=== PATIENT | male | born 1990 | race Two or more races ===

== ENCOUNTER 2017-08-22 08:52 | Emergency (ER) | payer BC ==
[2017-08-22 08:57] VITALS: BP 156/98; PULSE 80; TEMP 98.1; BMI 44.4
--- NOTE | 2017-08-22 09:35 | PDOC ---
History of Present Illness - General Chief Complaint: Back Pain Stated Complaint: BACK PAIN Time Seen by Provider: 08/22/17 09:16 History Source: Patient Exam Limitations: No Limitations - History of Present Illness Initial Comments: 08/22/17 09:29 Patient is a 27-year-old male, no significant medical history currently on no medication presents with sudden onset of left back pain described as sharp, feels as if something is stabbing and in his back and going towards his bladder. Denies any nausea vomiting, no diarrhea or constipation, no fever. No chest pain or shortness of breath. Past Medical History: [Denies]. Allergies: No known allergies Medications: [None] Family History: Non-contributory Social History: Denies smoking, alcohol use, or IVDU Vital signs on arrival are [notable for pulse of 80, temp is 98. 1] Review of Systems GENERAL/CONSTITUTIONAL: [No fever or chills. No weakness. No weight change.] HEAD, EYES, EARS, NOSE AND THROAT: [No change in vision. No ear pain or discharge. No sore throat. ] CARDIOVASCULAR: [No chest pain or shortness of breath.] RESPIRATORY: [No cough, wheezing, or hemoptysis.] GASTROINTESTINAL: [No nausea, vomiting, diarrhea or constipation. No rectal bleeding.] GENITOURINARY: [No dysuria, frequency, or change in urination.] MUSCULOSKELETAL: [No joint or muscle swelling or pain. Left posterior back pain] SKIN AND BREASTS: [No rash or easy bruising.] NEUROLOGIC: [No headache, vertigo, loss of consciousness, or loss of sensation.] PSYCHIATRIC: [No depression or anxiety.] ENDOCRINE: [No increased thirst. No abnormal weight change.] HEMATOLOGIC/LYMPHATIC: [No anemia, easy bleeding, or history of blood clots.] ALLERGIC/IMMUNOLOGIC: [No hives or skin allergy. No latex allergy.] Physical Exam: GENERAL: [The patient is awake, alert, and fully oriented, in no acute distress. ] HEAD: [Normal with no signs of trauma.] EYES: [Pupils equal, round and reactive to light, extraocular movements intact, sclera anicteric, conjunctiva clear.] ENT: [Ears normal, nares patent, oropharynx clear without exudates. Moist mucous membranes. No uvula deviation] NECK: [Normal range of motion, supple without lymphadenopathy, JVD, or masses.] LUNGS: [Breath sounds equal, clear to auscultation bilaterally. No wheezes, and no crackles.] HEART: [Regular rate and rhythm, normal S1 and S2 without murmur, rub or gallop. ] ABDOMEN: [Soft, nontender, normoactive bowel sounds. No guarding, no rebound. No masses. No bruising or abrasions] MUSCULOSKELETAL: [Normal range of motion, no edema. No clubbing or cyanosis. No cords, erythema, or tenderness. CVA Tenderness with fist palpation bilateral sides, worse on the left. .] NEUROLOGICAL: [Cranial nerves II through XII grossly intact. Normal speech, normal gait.] PSYCH: [Normal mood, normal affect.] SKIN: [Warm, Dry, normal turgor, no rashes or lesions noted.] 08/22/17 09:30 Past History - Past Medical History Allergies/Adverse Reactions: Allergies Allergy/AdvReac Type Severity Reaction Status Date / Time No Known Allergies Allergy Verified 08/22/17 08:53 Home Medications: Ambulatory Orders Naproxen [Naprosyn] 500 mg PO BID #30 tablet 08/22/17 COPD: No Other medical history: DENIES. - Suicide/Smoking/Psychosocial Hx Smoking History: Never smoked *Physical Exam - Vital Signs Last Vital Signs Temp Pulse Resp BP Pulse Ox 98.1 F 80 19 156/98 98 08/22/17 08:54 08/22/17 08:54 08/22/17 08:54 08/22/17 08:54 08/22/17 08:54 Medical Decision Making - Medical Decision Making 08/22/17 09:35 A/P: Patient with CVA tenderness, we'll send urinalysis and urine culture rule out kidney stone 08/22/17 11:24 +1 blood in the urine Laboratory Results - last 24 hr 08/22/17 09:30 Urine Color Colorless Urine Appearance Clear Urine pH 7.0 Ur Specific [place] 1.003 Urine Protein Negative Urine Glucose (UA) Negative Urine Ketones Negative Urine Blood 1+ H Urine Nitrite Negative Urine Bilirubin Negative Urine Urobilinogen Negative Ur Leukocyte Esterase Negative Urine WBC (Auto) <1 Urine RBC (Auto) <1 Patient still with significant CVA tenderness will perform spiral CT rule out kidney stone 08/22/17 14:53 CT were no evidence of kidney stone, chest x-ray performed with no acute cardiopulmonary disease. Toradol given 60 mg, patient reports relief after medication. Patient musculoskeletal pain. Encourage patient no lifting greater than 10 pounds, Naprosyn for pain. I discussed the physical exam findings, ancillary test results and final diagnoses with the patient. I answered all of the patient's questions. The patient was satisfied with the care received and felt comfortable with the discharge plan and treatment plan. The patient will call to arrange follow-up and will return to the Emergency Department with any new, persistent or worsening symptoms. *DC/Admit/Observation/Transfer Diagnosis at time of Disposition: Back pain Qualifiers: Back pain location: thoracic back pain Chronicity: acute Back pain laterality: left Qualified Code(s): M54.6 - Pain in thoracic spine - Discharge Dispostion Disposition: HOME Condition at time of disposition: Stable - Prescriptions Prescriptions: Naproxen [Naprosyn] 500 mg PO BID #30 tablet - Referrals - Patient Instructions Printed Discharge Instructions: Back Pain (Alternative Therapy) Additional Instructions: 1. Please return to the emergency department with any numbness, tingling, weakness, numbness or tingling to groin or legs, or loss of bowel or bladder function. 2. Use pain medication as ordered. 3. Please is to followup in the office of Dr. ritter for evaluation within a week if no improvement. 4. Ice or heat 5. Refrain from lifting anything above 10 pounds, until pain resolved. - Post Discharge Activity Forms/Work/School Notes: Back to Work
[2017-08-22 09:49] LABS: URINE APPEARANCE CLEAR; URINE BILIRUBIN NEGATIVE (NEGATIVE); URINE BLOOD 1+ (NEGATIVE); URINE COLOR COLORLESS; URINE GLUCOSE (UA) NEGATIVE (NEGATIVE); URINE KETONE NEGATIVE (NEGATIVE); URINE LEUK ESTERASE NEGATIVE (NEGATIVE); URINE NITRITE NEGATIVE (NEGATIVE); URINE PROTEIN NEGATIVE (NEGATIVE); URINE UROBILINOGEN NEGATIVE mg/dL (0.2-1.0)
[2017-08-22] MEDS ORDERED: KETOROLAC TROMETHAMINE 60 MG/2 ML VIAL IM ONE (11:59)
[2017-08-22] MEDS ORDERED: KETOROLAC TROMETHAMINE 60 MG/2 ML VIAL ONE (12:05)
== END 2017-08-22 13:08 | disposition home or self-care (01) ==
LOC: JERFT 08:52
PROC: 3E0233Z Introduction of Anti-inflammatory into Muscle, Percutaneous Approach (ICD-10-PCS; principal; 2017-08-22)
DX: M54.6 Pain in thoracic spine (principal)
CPT/HCPCS: 71046-TC-FY; 74176; 81003; 81015; 87086; 99281-25

== ENCOUNTER 2018-09-17 01:34 | Observation (INO) | payer BC ==
[2018-09-17 03:10] VITALS: BMI 49.2
--- NOTE | 2018-09-17 03:14 | PDOC ---
Attending Attestation - HPI HPI: 09/17/18 03:27 The patient is a 28 year old male, with a significant past medical history of anxiety, who presents to the emergency department with, 2 days of chest pain with shortness of breath. Patient notes his pain worsened today causing him to not be able to sleep, prompting his arrival. He denies any recent fevers, chills, headache or dizziness. He denies any recent nausea, vomit, diarrhea or constipation. He denies any recent dysuria, frequency, urgency or hematuria. Allergies: NKDA Past surgical history: None reported. Social History: Hookah. - Physicial Exam PE: 09/17/18 03:27 Refer to resident exam. <Vera Ballard - Last Filed: 09/17/18 03:26> - Resident Resident Name: Karyn Brady - ED Attending Attestation I have performed the following: I have examined & evaluated the patient, The case was reviewed & discussed with the resident, I agree w/resident's findings & plan - Medical Decision Making 09/17/18 04:24 28-year-old male with intermittent chest pain for several days worse when attempting to lay flat EKG shows T-wave abnormalities in inferior lateral leads with no old for comparison We will hold for serial enzymes/observation <Phoebe Brower - Last Filed: 09/17/18 04:25> Attestations - Attestations 09/17/18 03:28 Documentation prepared by Vera Ballard, acting as district medical examiner for Phoebe Brower DO. <Vera Ballard - Last Filed: 09/17/18 03:26>
--- NOTE | 2018-09-17 03:30 | PDOC ---
History of Present Illness - General Chief Complaint: Shortness of Breath Stated Complaint: SOB,CHEST DISCOMFORT Time Seen by Provider: 09/17/18 03:14 - History of Present Illness Initial Comments: 09/17/18 03:29 The patient is a 28 year old male with a PMH of morbid obesity and anxiety presents to our ED c/o 2-3 day h/o chest pain. Pain is L sided, intermittent, and sometimes radiates down his L arm. Endorses associated shortness of breath that is worse with laying flat. No previous cardiac work-up. Family history significant for maternal and paternal grandmothers with hear problems. NKDA Surgical: none reported Social: daily hookah, denies other toxic habits PMD: None, has a pending appointment with Dr. Ron Bradnon M.D. As per EMR patient last evaluated in our ED in [address] Spiral [address] negative and patient discharged home with supportive care and orthopedic follow- up. Past History - Past Medical History Allergies/Adverse Reactions: Allergies Allergy/AdvReac Type Severity Reaction Status Date / Time No Known Allergies Allergy Verified 09/17/18 03:10 Home Medications: Ambulatory Orders NK [No Known Home Medication] 09/17/18 COPD: No - Suicide/Smoking/Psychosocial Hx Smoking History: Current every day smoker Have you smoked in the past 12 months: Yes Number of Cigarettes Smoked Daily: 10 Information on smoking cessation initiated: No Hx Alcohol Use: Yes (Social) Drug/Substance Use Hx: Yes (Marijuana) Review of Systems - Review of Systems Constitutional: No: Chills, Fever HEENTM: No: Recent change in vision Respiratory: Yes: Shortness of Breath. No: Cough, Wheezing Cardiac (ROS): Yes: Chest Pain. No: Lightheadedness, Palpitations, Syncope ABD/GI: No: Constipated, Diarrhea, Nausea, Vomiting Psychiatric: Yes: Anxiety *Physical Exam - Vital Signs Last Vital Signs Temp Pulse Resp BP Pulse Ox 98.5 F 102 H 17 161/82 100 09/17/18 01:34 09/17/18 01:34 09/17/18 01:34 09/17/18 01:34 09/17/18 01:34 - Physical Exam General Appearance: Yes: Obese HEENT: positive: Normal Voice, Hearing Grossly Normal Neck: positive: Trachea midline, Supple Respiratory/Chest: positive: Lungs Clear, Normal Breath Sounds Cardiovascular: positive: S1, S2. negative: Edema, JVD Gastrointestinal/Abdominal: positive: Normal Bowel Sounds, Soft Extremity: positive: Normal Capillary Refill, Normal Inspection Integumentary: positive: Normal Color, Warm Neurologic: positive: Fully Oriented, Alert Moderate Sedation - Procedure Monitoring Vital Signs: Procedure Monitoring Vital Signs Temperature 98.5 F 09/17/18 01:34 Pulse Rate 102 H 09/17/18 01:34 Respiratory Rate 17 09/17/18 01:34 Blood Pressure 161/82 09/17/18 01:34 O2 Sat by Pulse Oximetry (%) 100 09/17/18 01:34 ED Treatment Course - LABORATORY CBC & Chemistry Diagram: 09/17/18 03:50 09/17/18 04:38 Medical Decision Making - Medical Decision Making 09/17/18 03:41 28 year old with chest pain and shorntess of breath. VS unremarkable. Frontal diagnosis: r/o ACS, esophageal spasm, GERD, costochondritis, MSK. Also consider CHF, though less likely given patient's age and clinical presentation. Basic labs, Troponin, BNP. ASA. Cardiac monitoring. Reassess. 09/17/18 03:43 EKG shows TWI in Leads II, III, aVGF as well as V4-6, no ISABEL/STD; no previous EKG in EMR Troponin (-) x1 Heart Score 4 Case d/w Dr. Ann, will admit Tele OBS for serial Troponins and further cardiac evaluation. Patient and patient's partner @ bedside counseled on plan of care, amenable to admission. *DC/Admit/Observation/Transfer Diagnosis at time of Disposition: Chest pain - Discharge Dispostion Condition at time of disposition: Fair Decision to Admit order: Yes - Referrals - Patient Instructions - Post Discharge Activity
[2018-09-17] MEDS ORDERED: ACETAMINOPHEN 1000 MG/100 ML VIAL (NON FORMULARY) IVPB ONE (03:42)
[2018-09-17] MEDS ORDERED: ACETAMINOPHEN INJECTION 100 ML IVPB ONE (03:52)
[2018-09-17 03:58] LABS: BASO % 0.9 % (0-2.0); EOS % 1.6 % (0-4.5); HEMATOCRIT 43.8 % (35.4-49); HEMOGLOBIN 15.7 GM/dL (11.7-16.9); LYMPH % 36.1 % (8-40); MCH 31.2 pg (25.7-33.7); MCHC 35.7 g/dl (32.0-35.9); MEAN CELL VOLUME 87.4 fl (80-96); MEAN PLT VOLUME 8.8 fl (7.5-11.1); NEUT % 54.4 % (42.8-82.8); PLATELET COUNT 250 K/MM3 (134-434); RBC 5.02 M/mm3 (4.00-5.60); RDW 13.2 % (11.9-15.9); WHITE BLOOD COUNT 10.4 K/mm3 (4.0-10.0)
[2018-09-17] MEDS ORDERED: ASPIRIN 325 MG TABLET PO ONE (04:04)
[2018-09-17] MEDS ORDERED: ASPIRIN 325 MG TABLET ONE (04:43)
[2018-09-17 05:14] LABS: ALBUMIN 4.2 g/dl (3.4-5.0); ALK PHOS 91 U/L (45-117); ANION GAP 8 MMOL/L (8-16); BILIRUBIN,TOTAL 0.4 mg/dL (0.2-1); BLOOD UREA NITROGEN 17 mg/dL (7-18); CALCIUM 9.3 mg/dL (8.5-10.1); CHLORIDE 101 mmol/L (98-107); CO2 25 mmol/L (21-32); GLUCOSE,RANDOM 123 mg/dL (74-106); POTASSIUM 3.9 mmol/L (3.5-5.1); SGOT/AST 31 U/L (15-37); SGPT/ALT 49 U/L (13-61); SODIUM 134 mmol/L (136-145); TOT PROT 7.6 g/dl (6.4-8.2)
[2018-09-17] MEDS ORDERED: ACETAMINOPHEN 325 MG TABLET (FP) PO PRN (09:02)
[2018-09-17] MEDS ORDERED: MORPHINE SULFATE 2 MG/ML VIAL IVPUSH PRN (09:02)
--- NOTE | 2018-09-17 09:18 | HP ---
CHIEF COMPLAINT: chest pain PCP: none HISTORY OF PRESENT ILLNESS: 28 yo M with no significant pmhx presents with two day history of chest pain. He describes 7/10 intermittent left sided non radiating chest pressure. Pain last for approx 30 min and occurs at rest. No associated nausea, vomiting, or diaphoresis. No cardiac history. He is obese but states he is active and works out several times a week on [employer] and lifts weights. No pain during these strenuous activities. At this time denies CP ,MILLER,SOB, abdominal pain, nausea, vomiting, fever or chills. ER course was notable for: (1)trops (-) x1 (2)EKG shows NSR, normal intervals, no st changes, non specific T wave inversions in lateral leads. (3) Recent Travel: denies PAST MEDICAL HISTORY: none PAST SURGICAL HISTORY: None Social History: Smoking:occasional hookah Alcohol:social Drugs: denies Family History: Grandmother ( DVT) Allergies No Known Allergies Allergy (Verified 09/17/18 03:10) HOME MEDICATIONS: Home Medications Medication Instructions Recorded NK [No Known Home Medication] 09/17/18 REVIEW OF SYSTEMS CONSTITUTIONAL: Absent: fever, chills, diaphoresis, generalized weakness, malaise, loss of appetite, weight change HEENT: Absent: rhinorrhea, nasal congestion, throat pain, throat swelling, difficulty swallowing, mouth swelling, ear pain, eye pain, visual changes CARDIOVASCULAR: chest pain Absent:, syncope, palpitations, irregular heart rate, lightheadedness, peripheral edema RESPIRATORY: Absent: cough, shortness of breath, dyspnea with exertion, orthopnea, wheezing, stridor, hemoptysis GASTROINTESTINAL: Absent: abdominal pain, abdominal distension, nausea, vomiting, diarrhea, constipation, melena, hematochezia GENITOURINARY: Absent: dysuria, frequency, urgency, hesitancy, hematuria, flank pain, genital pain MUSCULOSKELETAL: Absent: myalgia, arthralgia, joint swelling, back pain, neck pain SKIN: Absent: rash, itching, pallor HEMATOLOGIC/IMMUNOLOGIC: Absent: easy bleeding, easy bruising, lymphadenopathy, frequent infections ENDOCRINE: Absent: unexplained weight gain, unexplained weight loss, heat intolerance, cold intolerance NEUROLOGIC: Absent: headache, focal weakness or paresthesias, dizziness, unsteady gait, seizure, mental status changes, bladder or bowel incontinence PSYCHIATRIC: Absent: anxiety, depression, suicidal or homicidal ideation, hallucinations. PHYSICAL EXAMINATION Vital Signs - 24 hr 09/17/18 09/17/18 01:34 05:35 Temperature 98.5 F Pulse Rate 102 H Respiratory 17 Rate Blood Pressure 161/82 O2 Sat by Pulse 100 98 Oximetry (%) GENERAL: AAOx3, NAD HEAD: NCAT EYES: PERRLA,EOMI, sclera anicteric, conjunctiva clear. No lid lag. EARS, NOSE, THROAT: Moist mucous membranes. NECK: Normal range of motion, supple without lymphadenopathy, JVD, or masses. LUNGS: CTAB. No wheezes, and no crackles. No accessory muscle use. HEART: Tachycardic, normal S1 and S2 without murmur, rub or gallop. ABDOMEN: Soft, obese, NTND, NABS, no guarding, no rebound, no masses. No hepatomegaly or splenomegaly. MUSCULOSKELETAL: Normal range of motion at all joints. No bony deformities or tenderness. No CVA tenderness. LOWER EXTREMITIES: 2+ pulses, warm, well-perfused. No calf tenderness. No peripheral edema. NEUROLOGICAL: Cranial nerves II-XII intact. Normal speech. Normal gait. PSYCHIATRIC: Cooperative. Good eye contact. Appropriate mood and affect. SKIN: Warm, dry, normal turgor, no rashes or lesions noted, normal capillary refill. Laboratory Results - last 24 hr 09/17/18 09/17/18 09/17/18 03:50 03:50 04:38 WBC 10.4 H RBC 5.02 Hgb 15.7 Hct 43.8 MCV 87.4 MCH 31.2 MCHC 35.7 RDW 13.2 Plt Count 250 MPV 8.8 Absolute Neuts (auto) 5.7 Neutrophils % 54.4 Lymphocytes % 36.1 Monocytes % 7.0 Eosinophils % 1.6 Basophils % 0.9 Nucleated RBC % 0 Sodium Cancelled 134 L Potassium Cancelled 3.9 Chloride Cancelled 101 Carbon Dioxide Cancelled 25 Anion Gap Cancelled 8 BUN Cancelled 17 Creatinine Cancelled 1.0 Creat Clearance w eGFR Cancelled 89.63 Random Glucose Cancelled 123 H Calcium Cancelled 9.3 Total Bilirubin Cancelled 0.4 AST Cancelled 31 ALT Cancelled 49 Alkaline Phosphatase Cancelled 91 Creatine Kinase Cancelled 416 H Creatine Kinase Index 0.4 CK-MB (CK-2) 1.7 Troponin I Cancelled 0.04 B-Natriuretic Peptide Cancelled Total Protein Cancelled 7.6 Albumin Cancelled 4.2 ASSESSMENT/PLAN: 28 yo M with no significant pmhx presents with two day history of chest pain. He describes 7/10 intermittent left sided non radiating chest pressure placed on observation to r/o ACS. Problem List - Problem (1) Chest pain Assessment/Plan: Low pre-test probability of ACS. * most likely related to lack of sleep and stress/anxiety related * will trend trops * Cardiology consult * repeat EKG * LE doppler r/o DVT - low prob. of PE * pain meds with 2mg morphine and tylenol depending of level of pain. (2) Obesity Assessment/Plan: Counseled on imprortance of losing weight. * He says that he works out several days a week but needs to work on his intake. * counseled on possible health risk of being overweight. (3) DVT prophylaxis Assessment/Plan: heparin SQ 5000 u Q8h Visit type - Emergency Visit Emergency Visit: Yes ED Registration Date: 09/17/18 Care time: The patient presented to the Emergency Department on the above date and was hospitalized for further evaluation of their emergent condition. - New Patient This patient is new to me today: Yes Date on this admission: 09/17/18 - Critical Care Critical Care patient: No
[2018-09-17 09:21] VITALS: BP 138/78; PULSE 77; TEMP 98.1
--- NOTE | 2018-09-17 11:35 | PN ---
Teaching Attending Note Name of Resident: David Bean ATTENDING PHYSICIAN STATEMENT I saw and evaluated the patient. I reviewed the resident's note and discussed the case with the resident. I agree with the resident's findings and plan as documented. SUBJECTIVE: This is a 28 year old man with no significant medical history who comes to the ED complaining of chest pain. He has been having symptoms intermittently for the last 2 days. The pain is located in the left side of his chest and does not radiate. He says he feels SOB but denies dizziness, nausea, palpitations. Each episode lasts 30-60 minutes and resolves spontaneously. He says the symptoms occur after he eats "bad foods" but not after he eats "healthier foods". He does not get chest pain when he exercises. OBJECTIVE: Vital Signs Period Temp Pulse Resp BP Sys/Gan Pulse Ox Last 24 Hr 98.1 F-98.5 F 77-102 16-17 138-161/78-82 98-100 HEART: S1S2, RRR LUNGS: Clear ABDOMEN: Obese, soft, non-tender, non-distended, normal BS EXTREMITIES: No edema Laboratory Tests 09/17/18 09/17/18 09/17/18 03:50 03:50 04:38 WBC 10.4 H RBC 5.02 Hgb 15.7 Hct 43.8 MCV 87.4 MCH 31.2 MCHC 35.7 RDW 13.2 Plt Count 250 MPV 8.8 Absolute Neuts (auto) 5.7 Neutrophils % 54.4 Lymphocytes % 36.1 Monocytes % 7.0 Eosinophils % 1.6 Basophils % 0.9 Nucleated RBC % 0 Sodium Cancelled 134 L Potassium Cancelled 3.9 Chloride Cancelled 101 Carbon Dioxide Cancelled 25 Anion Gap Cancelled 8 BUN Cancelled 17 Creatinine Cancelled 1.0 Creat Clearance w eGFR Cancelled 89.63 Random Glucose Cancelled 123 H Calcium Cancelled 9.3 Total Bilirubin Cancelled 0.4 AST Cancelled 31 ALT Cancelled 49 Alkaline Phosphatase Cancelled 91 Creatine Kinase Cancelled 416 H Creatine Kinase Index 0.4 CK-MB (CK-2) 1.7 Troponin I Cancelled 0.04 B-Natriuretic Peptide Cancelled Total Protein Cancelled 7.6 Albumin Cancelled 4.2 Home Medications Medication Instructions Recorded NK [No Known Home Medication] 09/17/18 ASSESSMENT AND PLAN: This is a 28 year old man with no significant medical history who presented to the ED with intermittent chest pain for the last 2 days. 1. Chest pain, atypical - Observe on telemetry - Serial troponins - Echocardiogram - RUQ US as patient relates his symptoms 2. Morbid obesity with BMI 49.2
--- NOTE | 2018-09-17 12:07 | EKG ---
Test Reason : Blood Pressure : / mmHG Vent. Rate : 084 BPM Atrial Rate : 084 BPM P-R Int : 142 ms QRS Dur : 094 ms QT Int : 366 ms P-R-T Axes : 039 074 -44 degrees QTc Int : 432 ms NORMAL SINUS RHYTHM INCOMPLETE RIGHT BUNDLE BRANCH BLOCK T WAVE ABNORMALITY, CONSIDER INFEROLATERAL ISCHEMIA ABNORMAL ECG NO PREVIOUS ECGS AVAILABLE Confirmed by LAWRENCE GONZALEZ MD ([id number]) on 09/17/2018 12:07:19 PM Referred By: Confirmed By:LAWRENCE GONZALEZ MD
[2018-09-17] MEDS ORDERED: HEPARIN NA (PORCINE) 5,000 UNITS/ML 1ML VIAL SQ SCH (14:00)
--- NOTE | 2018-09-17 14:45 | ECHO ---
Name: SHAYY MYERS Exam:Adult Echocardiogram Study Date: 09/17/2018 09:56 AM Age: 28 yrs Reason For Study: Chest pain Height: 66 in Weight: 308 lb BSA: 2.4 m2 MMode/2D Measurements & Calculations IVSd: 0.86 cm Ao root diam: 3.0 cm LVIDd: 5.1 cm LA dimension: 3.3 cm LVIDs: 3.3 cm LVPWd: 0.96 cm EDV(Teich): 126.0 ml LVOT diam: 2.1 cm ESV(Teich): 45.7 ml TAPSE: 2.5 cm Doppler Measurements & Calculations MV E max juan: 67.9 cm/sec Med Peak E' Juan: 8.7 cm/sec MV A max juan: 61.6 cm/sec Med E/e': 7.8 MV E/A: 1.1 Lat Peak E' Juan: 15.4 cm/sec Lat E/e': 4.4 Procedure A two-dimensional transthoracic echocardiogram with color flow and Doppler was performed. The study w as technically difficult with many images being suboptimal in quality. Left Ventricle The left ventricular size, thickness and function are normal. The left ventricle is not well visualiz ed. The left ventricular ejection fraction is normal. Regional wall motion abnormalities cannot be excluded d ue to limited visualization. Right Ventricle The right ventricle is not well visualized. Atria Normal left and right atrial size and function. Mitral Valve There is mild mitral valve thickening. The mitral valve is not well visualized. There is no mitral va lve stenosis. There is trace to mild mitral regurgitation. Tricuspid Valve The tricuspid valve is not well visualized. There is no tricuspid stenosis. There was insufficient TR detected to calculate RV systolic pressure. Aortic Valve The aortic valve is not well visualized. Pulmonic Valve The pulmonic valve is not well visualized. Great Vessels The aortic root is normal size. Pericardium/Pleura There is no pericardial effusion. Interpretation Summary The left ventricular size, thickness and function are normal The left ventricular ejection fraction is normal. Regional wall motion abnormalities cannot be excluded due to limited visualization. The left ventricle is not well visualized. The tricuspid valve is not well visualized. There is trace to mild mitral regurgitation. There was insufficient TR detected to calculate RV systolic pressure. The study was technically difficult with many images being suboptimal in quality. MD Scott Borges 09/17/2018 02:44 PM
--- NOTE | 2018-09-17 16:09 | CON.CARD ---
Consult Consult Specialty:: Cardiology Referred by:: Hospitalist Reason for Consultation:: Chest pain, abnl ekg - History of Present Illness Chief Complaint: chest pain History of Present Illness: 28 year old man with h/o obesity admitted for c/o chest pain. Pt seen and examined today in nad. States that his pain started 2-3 days ago and has been on and off since. states it occurs at rest, usually after eating, not associated with exertion. states that he exercises a few times per week walking on the treadmill and lifting weights without ever having any chest pain or sob with exertion. denies pnd, orthopnea, or LE edema - History Source History Provided By: Patient Limitations to Obtaining History: No Limitations - Alcohol/Substance Use Hx Alcohol Use: Yes (Social) - Smoking History Smoking history: Current every day smoker Have you smoked in the past 12 months: Yes Aproximately how many cigarettes per day: 10 - Social History ADL: Independent History of Recent Travel: No Home Medications - Allergies Allergies/Adverse Reactions: Allergies Allergy/AdvReac Type Severity Reaction Status Date / Time No Known Allergies Allergy Verified 09/17/18 03:10 - Home Medications Home Medications: Ambulatory Orders NK [No Known Home Medication] 09/17/18 Family Disease History - Family Disease History Family History: Denies Review of Systems - Review of Systems Constitutional: denies: No Symptoms, Chills, Diaphoresis, Fever, Lethargy, Loss of Appetite, Malaise, Night Sweats, Unintentional Wgt. Loss, Weakness, Other Eyes: denies: No Symptoms, Blind Spots, Blurred Vision, Double Vision, Eye Pain , Floaters, Photophobia, Recent Change in Vision, Other HENT: denies: No Symptoms, Difficult Swallowing, Ear Discharge, Ear Pain, Epistaxis, Gingival Bleeding, Hearing Loss, Mouth Swelling, Nasal Congestion, Ocular Prosthesis, Throat Pain, Toothache, Ringing in Ears, Other Neck: denies: No Symptoms, Decreased ROM, Lumps, Pain on Movement, Stiffness, Swollen Glands, Tenderness, Other Cardiovascular: reports: Chest Pain. denies: No Symptoms, Edema, Palpitations, Shortness of Breath, Other Respiratory: denies: No Symptoms, Cough, Exercise Intolerance, Hemoptysis, Orthopnea, PND, Snoring, SOB, SOB on Exertion, Wheezing, Other Gastrointestinal: denies: No Symptoms, Abdominal Pain, Bloating, Constipation, Diarrhea, Dysphagia, Indigestion, Melena, Nausea, Rectal Bleeding, Vomiting, Vomiting Blood, Other Genitourinary: denies: No Symptoms, Burning, Discharge, Dysuria, Flank Pain, Frequency, Hematuria, Incontinence, Lesions, Menses, Pain, Testicular Mass, Testicular Pain, Testicular Swelling, Urgency, Vaginal Bleeding, Other Breasts: denies: No Symptoms Reported, See HPI, Breast Implants, Discharge from Nipple, Lumps, Pain, Skin Changes, Other Musculoskeletal: denies: No Symptoms, Back Pain, Crepitus, Decreased ROM, Extremity Pain, Joint Pain, Joint Swelling, Muscle Pain, Muscle Cramps, Muscle Weakness, Other Integumentary: denies: No Symptoms, Blister, Bruising, Change in Color, Eczema, Erythema, Incision, Lesions, Lump, Pallor, Pruritis, Rash, Wound, Other Neurological: denies: No Symptoms, Change in LOC, Change in Speech, Confusion, Dizziness, Headache, Incoordination, Numbness, Parasthesia, Pre-Existing Deficit , Seizure, Syncope, Tremors, Unsteady Gait, Weakness, Other Endocrine: denies: No Symptoms, Excessive Sweating, Flushing, Increased Hunger, Increased Thirst, Intolerance to Cold, Intolerance to Heat, Unexplained Weight Gain, Unexplained Weight Loss, Other Hematology/Lymphatic: denies: No Symptoms, Easily Bruised, Excessive Bleeding, Swollen Glands, Other Psychiatric: denies: No Symptoms, Altered Sleep Pattern, Anxiety, Depression, Hallucinations, Panic, Paranoia, Suicidal, Other Vital Signs: Vital Signs Temperature 98.1 F 09/17/18 09:20 Pulse Rate 77 09/17/18 09:20 Respiratory Rate 16 09/17/18 09:20 Blood Pressure 138/78 09/17/18 09:20 O2 Sat by Pulse Oximetry (%) 98 09/17/18 09:20 Constitutional: Yes: No Distress, Calm Eyes: Yes: Conjunctiva Clear, EOM Intact, PERRL HENT: Yes: Atraumatic, Normocephalic Neck: Yes: Supple, Trachea Midline Respiratory: Yes: Regular, CTA Bilaterally. No: Rales, Rhonchi, Wheezes Gastrointestinal: Yes: Normal Bowel Sounds, Soft. No: Distention, Tenderness Renal/: Yes: WNL Cardiovascular: Yes: Regular Rate and Rhythm. No: Bradycardia, Tachycardia, Pulse Irregular, Gallop, Rub, Varicosities JVD: No Carotid Bruit: No PMI: Non-Displaced Heart Sounds: Yes: S1, S2. No: Split S2, S3, S4, Clicks, Gallop, Rub, Bruit Murmur: No: Systolic Murmur, Diastolic Murmur Musculoskeletal: Yes: WNL Extremities: Yes: WNL Edema: No Peripheral Pulses WNL: Yes Peripheral Pulses: 2+ Left Doralis Pedis, 2+ Right Dorsalis Pedis Neurological: Yes: Alert, Oriented Psychiatric: Yes: Alert, Oriented - Other Data Labs, Other Data: CBC, BMP 09/17/18 03:50 09/17/18 04:38 Troponin, BNP 09/17/18 09/17/18 09/17/18 03:50 04:38 09:50 Troponin I Cancelled 0.04 0.03 B-Natriuretic Peptide Cancelled Troponin, BNP 09/17/18 09/17/18 09/17/18 03:50 04:38 09:50 Troponin I Cancelled 0.04 0.03 B-Natriuretic Peptide Cancelled nsr 84bpm, T wave abnl inversions V4, v5, v6, II, III, aVF Imaging - Results Chest X-ray: Report Reviewed, Image Reviewed EKG: Report Reviewed, Image Reviewed Other: Report Reviewed, Image Reviewed Assessment/Plan 28 year old man with h/o obesity admitted for c/o chest pain. Pt seen and examined today in nad. States that his pain started 2-3 days ago and has been on and off since. states it occurs at rest, usually after eating, not associated with exertion. states that he exercises a few times per week walking on the treadmill and lifting weights without ever having any chest pain or sob with exertion. denies pnd, orthopnea, or LE edema Chest pain-atypical, unlikely ACS -troponin wnl -echo was TDS but showed normal LVEF -nsr 84bpm, T wave abnl inversions V4, v5, v6, II, III, aVF -no further chest pain since admission -pt is acceptable for discharge from a cardiac standpoint, would plan for outpatient fup.
--- NOTE | 2018-09-17 16:31 | DS ---
Physical Exam: SUBJECTIVE: Patient seen and examined at bedside. No longer with chest pain. Ready for d/c. OBJECTIVE: Vital Signs Period Temp Pulse Resp BP Sys/Gan Pulse Ox Last 24 Hr 98.1 F-98.5 F 77-102 16-17 138-161/78-82 98-100 PHYSICAL EXAM GENERAL: AAOx3, NAD HEAD: NCAT EYES: PERRLA,EOMI, sclera anicteric, conjunctiva clear. No lid lag. EARS, NOSE, THROAT: Moist mucous membranes. NECK: Normal range of motion, supple without lymphadenopathy, JVD, or masses. LUNGS: CTAB. No wheezes, and no crackles. No accessory muscle use. HEART: Tachycardic, normal S1 and S2 without murmur, rub or gallop. ABDOMEN: Soft, obese, NTND, NABS, no guarding, no rebound, no masses. No hepatomegaly or splenomegaly. MUSCULOSKELETAL: Normal range of motion at all joints. No bony deformities or tenderness. No CVA tenderness. LOWER EXTREMITIES: 2+ pulses, warm, well-perfused. No calf tenderness. No peripheral edema. NEUROLOGICAL: Cranial nerves II-XII intact. Normal speech. Normal gait. PSYCHIATRIC: Cooperative. Good eye contact. Appropriate mood and affect. SKIN: Warm, dry, normal turgor, no rashes or lesions noted, normal capillary refill. LABS Laboratory Results - last 24 hr 09/17/18 09/17/18 03:50 04:38 WBC 10.4 H RBC 5.02 Hgb 15.7 Hct 43.8 MCV 87.4 MCH 31.2 MCHC 35.7 RDW 13.2 Plt Count 250 MPV 8.8 Absolute Neuts (auto) 5.7 Neutrophils % 54.4 Lymphocytes % 36.1 Monocytes % 7.0 Eosinophils % 1.6 Basophils % 0.9 Nucleated RBC % 0 Sodium 134 L Potassium 3.9 Chloride 101 Carbon Dioxide 25 Anion Gap 8 BUN 17 Creatinine 1.0 Creat Clearance w eGFR 89.63 Random Glucose 123 H Calcium 9.3 Total Bilirubin 0.4 AST 31 ALT 49 Alkaline Phosphatase 91 Creatine Kinase 416 H Creatine Kinase Index 0.4 CK-MB (CK-2) 1.7 Troponin I 0.04 B-Natriuretic Peptide Total Protein 7.6 Albumin 4.2 Troponin trend 09/17/18 09/17/18 09/17/18 04:38 09:50 15:00 Troponin I 0.04 0.03 0.03 Abdomen U/S: hepatomegaly with diffuse fatty infiltration of liver. b/l duplex: (-) for DVT ECHO: suboptimal in quality. LV EF normal. regional wall motion abnormalities cannot be excluded due to limited visualization. nromaml LA, RA size and function. insufficient TR to calculate RSVP. EKG: nsr 84bpm, T wave abnl inversions V4, v5, v6, II, III, aVF HOSPITAL COURSE: Date of Admission:09/17/18 Date of Discharge: 09/17/18 Admit diagnosis: r/o ACS 28 yo M with no significant pmhx presents with two day history of chest pain. He describes 7/10 intermittent left sided non radiating chest pressure. Pain last for approx 30 min and occurs at rest. No associated nausea, vomiting, or diaphoresis. No cardiac history. He is obese but states he is active and works [place] a [place] [employer] [place] [employer] and lifts weights. No pain during these strenuous activities. At this time denies CP ,MILLER,SOB, abdominal pain, nausea, vomiting, fever or chills. After pt was admitted, trops were trended and (-)x 3. ECHO was done- suboptimal study however LV EF was normal. regional wall motion abnormalities could not be excluded due to limited visualization. EKG was nsr 84bpm, T wave abnl inversions V4, v5, v6, II, III, aVF. Pt was seen by cardiology and cleared for d /c with cardio f/u. No new medications started during visit. Minutes to complete discharge: 44 Discharge Summary Reason For Visit: CHEST PAIN Current Active Problems Chest pain (Acute) Obesity (Chronic) Condition: Fair - Instructions Diet, Activity, Other Instructions: Your visit You were in the hospital because you had chest pain. While you were here, you had enzymes trended to check your heart function. They were normal. You also had an EKG done which had non specific changes, as well as an ECHO (picture taken of your heart) which was normal. A heart doctor, Dr. Meyer evaluated you and you are cleared to go home. While you were here, you also had an ultrasound done on your legs. You did not have any clots. You are being discharged home. Medications no new medications have been started Follow-up Please follow up with the joinery setter out, Dr. Meyer in 1 week. Since you do not have a primary care doctor, we are referring you to Dr. Osiel Meyers ( a primary care doctor) to establish care. Please see her in a week, or a primary care physician of your choice to follow up and discuss your hospital visit. Further instructions It is important that you lose weight as this can help your heart health. If you develop shortness of breath, or chest pain, please go to the hospital. Referrals: Osiel Meyers MD [Staff Physician] - 1 Week Nishant Meyer MD [Staff Physician] - 1 Week Disposition: HOME - Home Medications Comprehensive Discharge Medication List: Ambulatory Orders NK [No Known Home Medication] 09/17/18 This patient is new to me today: Yes Date on this admission: 09/17/18 Emergency Visit: Yes ED Registration Date: 09/17/18 Care time: The patient presented to the Emergency Department on the above date and was hospitalized for further evaluation of their emergent condition. Critical Care patient: No - Discharge Referral Referred to [facility] No
== END 2018-09-17 16:15 | disposition home or self-care (01) ==
LOC: JER 01:34 → JERBED 05:08
PROVIDERS: ADMIT Internal Medicine; ATTEND Internal Medicine
PROC: 3E033NZ Introduction of Analgesics, Hypnotics, Sedatives into Peripheral Vein, Percutaneous Approach (ICD-10-PCS; principal; 2018-09-17)
DX: R07.89 Other chest pain (principal); F41.9 Anxiety disorder, unspecified; F17.210 Nicotine dependence, cigarettes, uncomplicated; E66.01 Morbid (severe) obesity due to excess calories; Z68.42 Body mass index [BMI] 45.0-49.9, adult
CPT/HCPCS: 36415; 71046-TC-FY; 76705-TC; 80053; 82550; 82553; 84484; 85025; 93005; 93010; 93306-TC; 93970-TC; 99282-25; G0378; J0131